=== PATIENT | female | born 1940 | race Two or more races ===

== ENCOUNTER 2019-12-06 08:11 | Day surgery (SDC) | payer MEDICARE, OTHER ==
[~2019-12-06] VITALS: Ht 152.4 cm; Wt 77.1 kg
[2019-12-06] VITALS (9 sets, daily range): BP systolic 90–139; BP diastolic 45–69
[2019-12-06] MEDS ORDERED: HYDRALAZINE HCL25 M1 ORAL (10:13)
[2019-12-06] MEDS ORDERED: ASPIR 8181 MG ORAL (10:13)
[2019-12-06] MEDS ORDERED: LR 1000ml 1,000 ML IVLG SCH (11:11)
--- NOTE | 2019-12-06 11:11 | Anethesia Preoperative Eval ---
Anesthesia Pre-op PMH/ROS General Date of Evaluation: Dec 06, 2019 Anesthesiologist: Damián ASA Score: ASA 3 Mallampati Score Class I : Soft palate, uvula, fauces, pillars visible Class II: Soft palate, uvula, fauces visible Class III: Soft palate, base of uvula visible Class IV: Only hard plate visible Mallampati Classification: Class II Surgeon: Daren Diagnosis: Left foot bunion, second digit hammertoe Surgical Procedure: Left foot bunionectomy and correction of 2nd digit hammertoe Anesthesia History: none Family History: no anesthesia problems Allergies: Coded Allergies: No Known Allergies (Unverified , 12/06/19) Medications: see eMAR Patient NPO?: Yes NPO Date: Dec 06, 2019 NPO Time: 00:00 Past Medical History Cardiovascular: Reports: HTN, other - HLD; Denies: CAD, NV, valve dz, arrhythmia Pulmonary: Reports: asthma; Denies: COPD, CONRAD, other Gastrointestinal/Genitourinary: Reports: GERD; Denies: CRI, ESRD, other Neurologic/Psychiatric: Reports: depression/anxiety; Denies: dementia, CVA, TIA, other Endocrine: Reports: hypothyroidism; Denies: DM, steroids, other HEENT: Denies: cataract (L), cataract (R), glaucoma, [place]AMI (L), [place] (R), other Hematology/Immune: Denies: anemia, DVT, bleeding disorder, other Musculoskeletal/Integumentary: Reports: OA; Denies: RA, DJD, DDD, edema, other PSxH Narrative: PARI, bilateral cataract sx Anesthesia Pre-op Phys. Exam Physician Exam Last Vital Signs Date Time Temp Pulse Resp B/P (MAP) Pulse Ox O2 Delivery O2 Flow Rate FiO2 12/06/19 09:18 Room Air 12/06/19 08:55 97.0 73 18 139/69 95 Constitutional: NAD Cardiovascular: RRR Respiratory: CTA Airway Exam Mallampati Score: Class II MO: full ROM: full Anesthesia Pre-op A/P Labs see chart Studies Pre-op Studies: EKG - sr Risk Assessment & Plan Assessment: ASA III Plan: MAC Status Change Before Surgery: No Pre-Antibiotics Drug: TBD Given Within 1 Hr of Incision: Yes Archana Lisa MD Dec 06, 2019 11:10
[2019-12-06] MEDS ORDERED: Hydromorphone 0.5mg/0.5ml inj IVP PRN (11:15)
[2019-12-06] MEDS ORDERED: fentaNYL 100 mcg/2 mL IV PRN (11:15)
[2019-12-06] MEDS ORDERED: Ketorolac 30mg Inj IV PRN (11:15)
[2019-12-06] MEDS ORDERED: DiphenhydrAMINE 50mg/ml Inj IVP PRN (11:15)
[2019-12-06] MEDS ORDERED: Betadine 10% Oint 30gm TOPIC ONE (11:19)
[2019-12-06] MEDS ORDERED: ZANTAC150 MG ORAL (11:19)
[2019-12-06] MEDS ORDERED: SYNTHROID75 MCG ORAL (11:19)
[2019-12-06] MEDS ORDERED: RANEXA500 MG ORAL (11:19)
[2019-12-06] MEDS ORDERED: LOSARTAN POTASS50 MG ORAL (11:19)
[2019-12-06] MEDS ORDERED: ESCITALOPRAM OX20 MG ORAL (11:19)
[2019-12-06] MEDS ORDERED: MECLIZINE HCL25 MG ORAL (11:19)
[2019-12-06] MEDS ORDERED: TRAMADOL HCL50 MG ORAL (11:19)
[2019-12-06] MEDS ORDERED: DICLOFEN 3%-HYA30 GM TP (11:19)
[2019-12-06] MEDS ORDERED: MONTELUKAST SOD10 MG ORAL (11:19)
[2019-12-06] MEDS ORDERED: VERAPAMIL ER240 M2 PO (11:19)
[2019-12-06] MEDS ORDERED: Dexamethasone 4mg/ml vial ONE (11:19)
[2019-12-06] MEDS ORDERED: Bupivacaine 0.5% Inj 30 ml vial INJ ONE (11:19)
[2019-12-06] MEDS ORDERED: Lidocaine 1% Plain 30 ml INJ ONE (11:20)
[2019-12-06] MEDS ORDERED: Bacitracin Oint 15gm Tube TOPIC ONE (11:20)
[2019-12-06] MEDS ORDERED: Propofol 200mg/20ml IV ONE ×2 (11:26→12:05)
[2019-12-06] MEDS ORDERED: Midazolam 2mg/2ml Inj ONE (11:26)
[2019-12-06] MEDS ORDERED: Lidocaine 1% MPF 10mg/ml 5ml ONE (11:26)
[2019-12-06] MEDS ORDERED: fentaNYL 100 mcg/2 mL IV ONE (11:26)
[2019-12-06] MEDS ORDERED: DiphenhydrAMINE 50mg/ml Inj ONE (11:28)
[2019-12-06] MEDS ORDERED: NS Irrig 1000ml ONE (11:30)
[2019-12-06] MEDS ORDERED: LR 1000ml ONE (11:30)
[2019-12-06] MEDS ORDERED: Sterile Water Irrig 1000ml IRRIG ONE (11:30)
--- NOTE | 2019-12-06 11:35 | Pre-Procedure Note/Attestation ---
Pre-Procedure Note/Attestation Complete Prior to Procedure Planned Procedure: left Procedure Narrative: Bunionectomy left foot Hammertoe correction second left digit Tenotomy and Capsulotomy second left MPJ Indications for Procedure Pre-Operative Diagnosis: Hallux Valgus with bunion deformity left foot Hammertoe deformity second left digit Contracture second left MPJ Attestation I attest that I discussed the nature of the procedure; its benefits; risks and complications; and alternatives (and the risks and benefits of such alternatives ), prior to the procedure, with the patient (or the patient's legal artists' booking representative). I attest that, if there was a reasonable possibility of needing a blood transfusion, the patient (or the patient's legal artists' booking representative) was given the [place] [employer] [facility] [employer] standardized written summary, pursuant to the [place] Do Blood Safety Act ([place] Health and Safety Code # 1645, as amended). I attest that I re-evaluated the patient just prior to the surgery and that there has been no change in the patient's H&P, except as documented below: Justin Mercedes DPM Dec 06, 2019 11:35
--- NOTE | 2019-12-06 13:08 | Brief Operative Note ---
Immediate Post Operative Note Operative Note Pre-op Diagnosis: Hallux Valgus with bunion deformity left foot Hammertoe deformity second left digit Contracture second left MPJ Procedure: Bunionectomy left foot Hammertoe correction second left digit Tenotomy and capsulotomy second left MPJ Post-op Diagnosis: same as pre-op Surgeon: Daren Anesthesiologist: Marisabel Anesthesia: MAC Specimen: yes Complications: none Condition: stable Fluids: 500 Estimated Blood Loss: none Drains: none Tourniquet time: 66 - min Implant(s) used?: No Justin Mercedes DPM Dec 06, 2019 13:08
--- NOTE | 2019-12-06 13:11 | Immediate Post-Op Evaluation ---
Immediate Post-Op Evalulation Immediate Post-Op Evalulation Procedure: Left bunionectomy, 2nd digit hammertoe correction, tenotomy, capsuotomy Date of Evaluation: Dec 06, 2019 Time of Evaluation: 13:11 IV Fluids: 600 Blood Products: 0 Estimated Blood Loss: min Urinary Output: 0 Pulse Rate: 58 Respiratory Rate: 16 O2 Sat by Pulse Oximetry: 99 Temperature (Fahrenheit): 97.8 Pain Score (1-10): 0 Nausea: No Vomiting: No Complications 0 Patient Status: awake, reacts, patent, none Hydration Status: adequate Drug: Ancef 1g Given Within 1 Hr of Incision: Yes Archana Lisa MD Dec 06, 2019 13:11
--- NOTE | 2019-12-06 13:11 | 48 Hour Post Anesthesia Eval ---
Post Anesthesia Evaluation Procedure: Left bunionectomy, 2nd digit hammertoe correction, tenotomy, capsuotomy Date of Evaluation: Dec 06, 2019 Airway: patent Nausea: No Vomiting: No Pain Intensity: 0 Hydration Status: adequate Cardiopulmonary Status: at baseline Mental Status/LOC: patient returned to baseline Post-Anesthesia Complications: 0 Follow-up care needed: ready to discharge Archana Lisa MD Dec 06, 2019 13:11
--- NOTE | 2019-12-06 15:23 | Diagnostic Imaging Report ---
Indication: Status post surgery Comparison: None Findings: 3 views of the left foot were obtained. There is air in the surgical bed at the first MTP joint region. Bunionectomy and osteotomy of the distal part of the first metatarsal noted as well as resection at the base of the first proximal phalange. There is also air in the area of the second toe with resection of the second proximal phalangeal head. IMPRESSION: Postsurgical changes as described above
--- NOTE | 2019-12-06 17:45 | Operative Note - Dictated ---
DATE OF OPERATION: 12/06/2019 SURGEON: Justin Mercedes D.P.M. ANESTHESIOLOGIST: Archana Petit M.D. ANESTHESIA: Local standby. PREOPERATIVE DIAGNOSES: 1. Hallux abductovalgus with bunion deformity, left foot. 2. Hammertoe deformity, second left digit. 3. Contracture second left metatarsophalangeal joint. POSTOPERATIVE DIAGNOSES: 1. Hallux abductovalgus with bunion deformity, left foot. 2. Hammertoe deformity, second left digit. 3. Contracture second left metatarsophalangeal joint. 4. Osteoporosis left foot. 5. DJD first left metatarsophalangeal joint. PROCEDURES PERFORMED: 1. Boucher type bunionectomy, left foot. 2. Extensor hallucis longus tendon repair left foot. 3. Arthroplasty second left proximal interphalangeal joint. 4. Tenotomy and capsulotomy, second left metatarsophalangeal joint. DESCRIPTION OF THE OPERATION: The patient was brought to the operating room and was placed on the operating room table in the supine position. IV sedation was administered by the anesthesiologist. Local anesthesia consisting of 1 to 1 mix of 0.5% Marcaine plain and 1% Xylocaine plain. A total of 20 mL was administered to the left foot. An ankle tourniquet was applied to the left lower extremity. The foot was prepped and draped in the usual sterile manner. An Esmarch bandage was utilized to exsanguinate the blood and the left ankle tourniquet was inflated to 250 mmHg. Attention was directed to the left hallux where an approximately 6 cm dorsal linear skin incision was centered over the first metatarsophalangeal joint. The incision was deepened utilizing sharp and blunt dissection with care being taken to cauterize and ligate all bleeders. At the level of the capsule, a linear capsulotomy was performed. The capsule was reflected medially and laterally and the head of the first metatarsal was exposed along with the base of the proximal phalanx. At this point, a sagittal saw was utilized to resect the medial eminence of the first metatarsal. The remaining bone was rasped smooth. The wound was copiously flushed utilizing sterile saline. Attention was then directed to the first metatarsal head, which was noted to be damaged at the level of the cartilage. At this point, the sagittal saw was used to resect one-third of the proximal aspect of the proximal phalanx. The wound was copiously flushed utilizing sterile saline. At this point, the extensor tendon was isolated and was identified to be ruptured. The tendon was lengthened and reapproximated utilizing 3-0 Vicryl in a simple interrupted type stitch. The wound was copiously flushed again utilizing sterile saline. The capsule was then reapproximated utilizing 3-0 Vicryl in a simple interrupted type stitch. The subcutaneous tissue was then reapproximated utilizing 4-0 Vicryl in a buried knot type stitch. The skin was then reapproximated utilizing 4-0 nylon in a simple interrupted type stitch. Attention was then directed to the second digit where an approximately 5 cm dorsal linear skin incision was centered over the proximal phalanx. The incision was deepened utilizing sharp and blunt dissection with care being taken to cauterize and ligate all bleeders. At the level of the proximal interphalangeal joint, the extensor tendon was tenotomized transversely and reflected proximally. The head of the proximal phalanx was exposed. The collateral ligaments were severed. At this point, utilizing a sagittal saw, the head of the proximal phalanx was resected in total. The remaining bone was rasped smooth. The wound was copiously flushed utilizing sterile saline. Attention was then directed to the second metatarsophalangeal joint where the extensor tendon was tenotomized. Utilizing a McGlamry scoop, the head of the second metatarsal was freed from all its soft tissue attachments in order to bring the second digit, which was contracted dorsally into a plantar flexed position. The wound was copiously flushed utilizing sterile saline. At this point, the extensor tendon was reapproximated distally utilizing 4-0 Vicryl in a simple interrupted type stitch. The subcutaneous tissue was then reapproximated utilizing 4-0 Vicryl in a buried knot type stitch. The skin was then reapproximated utilizing 4-0 nylon in a simple interrupted type stitch. The wound was dressed utilizing an Adaptic, 4 x 4 gauze, and 3 inch Tri. The left ankle tourniquet was deflated and vascular supply was noted to all digits left foot. The patient tolerated the procedure well and left the operating room to recovery room with all vital signs stable. Justin Mercedes D.P.M. DR: JOSE JOB#: [id number] CC:
--- NOTE | 2019-12-06 19:30 | History and Physical Report ---
DATE OF ADMISSION: 12/06/2019 PODIATRIC HISTORY AND PHYSICAL HISTORY OF PRESENT ILLNESS: This is an 79-year-old white female that is admitted today for an outpatient surgery of her left foot. The patient has been under my care for the past couple of months for painful bunion on the second toe on her left foot. Conservative treatment which consisted of padding and shoe-gear modification failed to alleviate her symptoms. The patient was consulted on surgical correction. PAST MEDICAL HISTORY: Remarkable for hypertension, hypothyroidism, osteoporosis, GERD, and osteoarthritis. MEDICATIONS: Verapamil, losartan, aspirin, meclizine, Synthroid, and ranitidine. ALLERGIES: No known drug allergies. PODIATRIC PHYSICAL EXAMINATION: VASCULAR STATUS: Dorsalis pedis and posterior tibial arteries are equally palpable measuring 1/4 bilaterally. The capillary filling time is less than 4 to 5 seconds to all digits bilaterally. Homans sign is negative. Mild varicosities are noted in bilateral lower extremity. NEUROLOGICAL: Reveals intact reflexes, Achilles and patellar measuring 2/4 bilaterally. Sensation, proprioception, and vibration are all intact bilateral lower extremity. Babinski is negative. Clonus is absent bilaterally. MUSCULOSKELETAL: Reveals hallux abductovalgus with bunion deformity bilaterally. There are hammertoe deformities of digits second through fifth bilaterally with the worse one being the second digit on the left foot. The hallux is under-riding the second left digit on the left side. Range of motion of the hallux at the first metatarsophalangeal joint is reduced with mild crepitations noted. Contracture of the second metatarsophalangeal joint is noted on the left side. All other joints range of motions are reduced, bilateral ankle subtalar and midtarsal joints. DERMATOLOGICAL: Reveals no scars or ulcerations bilaterally. All nails are present and dystrophic bilaterally. There is erythema over the medial aspect of the bunions bilaterally. The second left digit is hyperkeratotic at the level of the second proximal interphalangeal joint. ASSESSMENT: 1. Hallux abductovalgus with bunion deformity bilaterally. 2. Hammertoe deformity bilaterally. 3. Contracture, second left metatarsophalangeal joint. PLAN: The patient is admitted today for surgical corrections of her bunion and hammertoe deformities of the left foot. Risks, complications, and alternatives were discussed with the patient again. Postoperative medication was dispensed to the patient. Postoperative instructions were given to the patient. The patient elects to proceed with surgery. Justin Mercedes D.P.M. DR: ALVARO JOB#: [id number] CC:
== END 2019-12-06 15:10 | disposition home or self-care (01) ==
LOC: SUR 08:11
DX: M21.612 Bunion of left foot (principal); M20.42 Other hammer toe(s) (acquired), left foot; M20.5X2 Other deformities of toe(s) (acquired), left foot; M81.0 Age-related osteoporosis without current pathological fracture; M19.072 Primary osteoarthritis, left ankle and foot; I10 Essential (primary) hypertension; E03.9 Hypothyroidism, unspecified; K21.9 Gastro-esophageal reflux disease without esophagitis; M19.90 Unspecified osteoarthritis, unspecified site; Z79.82 Long term (current) use of aspirin; Z79.899 Other long term (current) drug therapy
CPT/HCPCS: 28234; 28285; 28292; 73630; 97161; J0690; J1100; J1200; J2001; J2250; J2704; J3010; J3490; J7120; 94003; 94150